=== PATIENT | female | born 1975 | race African-American/Black ===

== ENCOUNTER 2017-04-20 12:05 | Emergency (ER) | payer MEDICAID ==
[~2017-04-20] VITALS: Ht 154.9 cm; Wt 77.1 kg
[2017-04-20] MEDS ORDERED: Famotidine 20 MG/ 2ML VIAL IVP ONE (12:15)
[2017-04-20 12:35] LABS: BASOPHILS % (AUTO) 1.1 % (0.0-2.0); EOSINOPHILS % (AUTO) 0.3 % (0.0-3.0); LYMPHOCYTES % (AUTO) 27.6 % (20.0-45.0); MEAN CORPUSCULAR HEMOGLOBIN 30.2 PG (27.0-31.0); MEAN CORPUSCULAR HGB CONC 31.2 G/DL (32.0-36.0); MEAN CORPUSCULAR VOLUME 97 FL (80-99); MEAN PLATELET VOLUME 4.7 FL (6.5-10.1); MONOCYTES % (AUTO) 4.1 % (1.0-10.0); NEUTROPHILS % (AUTO) 66.8 % (45.0-75.0); PLATELET COUNT 396 K/UL (150-450); RED BLOOD COUNT 4.21 M/UL (4.20-5.40); WHITE BLOOD COUNT 7.5 K/UL (4.8-10.8)
[2017-04-20 12:36] VITALS: BP 142/76
[2017-04-20] MEDS ORDERED: Metoclopramide 10mg/2ml Inj ONE (13:02)
[2017-04-20 13:11] LABS: ALANINE AMINOTRANSFERASE 14 U/L (3-33); ALBUMIN/GLOBULIN RATIO 1.6 (1.0-2.7); ANION GAP 13 (5-15); ASPARTATE AMINO TRANSFERASE 21 U/L (5-40); CALCIUM 8.6 mg/dL (8.6-10.2); CARBON DIOXIDE 22 mEQ/L (20-30); CHLORIDE 106 mEQ/L (98-107); CREATININE 0.8 mg/dL (0.5-0.9); GLOMERULAR FILTRATION RATE > 60 mL/min (>60); HEMOLYSIS 6; LIPASE 16 U/L (< 60); POTASSIUM 3.7 mEQ/L (3.4-4.9); SODIUM 141 mEQ/L (135-145); TOTAL PROTEIN 7.1 g/dL (6.6-8.7)
[2017-04-20] MEDS ORDERED: Metoclopramide 10mg/2ml Inj IVP ONE (13:30)
[2017-04-20 13:44] LABS: APPEARANCE,URINE SLIGHTLY CLOUDY; KETONES,URINE NEGATIVE (NEGATIVE); LEUKOCYTE ESTERASE ,URINE NEGATIVE (NEGATIVE); NITRITE,URINE NEGATIVE (NEGATIVE); PH,URINE 7 (4.5-8.0); PROTEIN,URINE NEGATIVE (NEGATIVE); UROBILINOGEN,URINE NORMAL MG/DL (0.0-1.0)
[2017-04-20 13:51] LABS: BACTERIA,URINE FEW /HPF; RBC,URINE 0-2 /HPF (0 - 2); SQUAMOUS EPITHELIAL CELL,UR FEW /LPF (NONE/OCC); WBC,URINE 0-2 /HPF (0 - 2)
[2017-04-20] MEDS ORDERED: ZOFRAN ODT4 MG ORAL (13:54)
--- NOTE | 2017-04-20 13:54 | Emergency Room Report ---
History of Present Illness General Chief Complaint: Nausea Source: Patient, EMS Present Illness HPI 41-year-old female in no significant past medical history chronic marijuana user presenting with 2 days of nausea and vomiting. Patient states about 7 episodes of nonbilious nonbloody vomiting for the last 2 days associated with mild epigastric pain. Epigastric pain is burning in nature. Epigastric pain comes after the vomiting. No fever no chills no black or bloody stools no dysuria no hematuria Allergies: Coded Allergies: No Known Allergies (Unverified , 04/20/17) Patient History Past Medical History: none Past Surgical History: none Pertinent Family History: none Social History: Reports: drug use, smoking Now: No Nursing Documentation-[facility] Past Medical History: No History, Except For Hx Gastrointestinal Problems: Yes - History of Gastritis Review of Systems Gastrointestinal: Reports: abdominal pain, nausea, vomiting All Other Systems: negative except mentioned in HPI Physical Exam Vital Signs Date Time Temp Pulse Resp B/P Pulse Ox O2 Delivery O2 Flow Rate FiO2 04/20/17 12:04 98.1 132 24 142/76 97 Room Air Sp02 EP Interpretation: reviewed, normal General Appearance: normal inspection, well appearing, no apparent distress, alert, GCS 15, non-toxic Head: normocephalic, atraumatic Eyes: bilateral eye EOMI, bilateral eye PERRL, bilateral eye normal inspection ENT: normal ENT inspection, normal pharynx, normal voice, moist mucus membranes Neck: normal inspection, full range of motion, supple, no bony tend Respiratory: normal inspection, lungs clear, normal breath sounds, no respiratory distress, no retraction, no wheezing, speaking full sentences, chest symmetrical Cardiovascular #1: normal inspection, regular rate, rhythm, no edema, normal capillary refill Gastrointestinal: normal inspection, non tender, soft, non-distended, no guarding, other - No tenderness to deep palpation all quadrants. Pantoja's negative Musculoskeletal: normal inspection, back normal, normal range of motion, non- tender Neurologic: normal inspection, alert, oriented x3, responsive, motor strength/ tone normal, sensory intact, normal gait, speech normal Psychiatric: normal inspection, judgement/insight normal, memory normal Skin: normal inspection, normal color, no rash, warm/dry, well hydrated, normal turgor Medical Decision Making Diagnostic Impression: Primary Impression: Nausea and vomiting in adult patient ER Course 41 yo F p/w n/v x 2 days DDX: gastritis / gastroenteritis / GERD / marijuana related / / UTI at this time abdomen is soft/NT all quadrants, less likely dx are appendicitis, diverticulitis, gastritis, SBO, UTI imaging not indicated at this time Plan: IV access, obtain labs, UA/UCX, fluids, zofran ER Course: Patient has been stable in the ED. Pt states improvement with medications zofran /reglan Labs unremarkable, *UCG negative Repeat abdominal exam benign: no tenderness on exam Disposition: Patient will be discharged from the ED. Patient remains nontoxic appearing and her overall condition has improved while in the ED. Strict precautions were discussed with patient to emergently return to the ED such as: if there is a return or worsening of abdominal pain, inability to tolerate PO, persistent n/v, and fever/chills, which could indicate severe illness. Patient verbalized understanding. She is instructed to follow up with her PMD within 1 week. Patient agrees with plan. Last Vital Signs Date Time Temp Pulse Resp B/P Pulse Ox O2 Delivery O2 Flow Rate FiO2 04/20/17 12:36 98.1 87 24 142/76 97 Room Air Disposition: HOME, SELF-CARE Condition: Improved Scripts Ondansetron Odt* (ZOFRAN ODT*) 4 Mg Tab.rapdis 4 MG ORAL Q6H Y for Nausea & Vomiting for 2 Days, #8 TAB 0 Refills Prov: Harvey Meek M.D. 04/20/17 Referrals: [facility],REF (PCP) Patient Instructions: Nausea and Vomiting, Adult Additional Instructions: Please follow up with your primary care doctor within 3 days. Please return to the emergency room immediately if you are experiencing severe or worsening pain, high fevers or chills, chest pain, shortness of breath, severe abdominal pain, severe/persistent nausea or vomiting, headache. Harvey Meek M.D. Apr 20, 2017 13:54
[2017-04-20 14:13] VITALS: BP 125/73
[2017-04-20 14:31] VITALS: BP 125/73
== END 2017-04-20 14:35 | disposition home or self-care (01) ==
LOC: EDBD 12:05 → EMR 13:08
DX: R11.2 Nausea with vomiting, unspecified (principal); R10.13 Epigastric pain; Z87.19 Personal history of other diseases of the digestive system; F17.200 Nicotine dependence, unspecified, uncomplicated
CPT/HCPCS: 36415; 80053; 81003; 81025; 83690; 85025; 96361; 96374; 96375; 96376; 99284; J2405; J2765; S0028

== ENCOUNTER 2017-08-28 14:55 | Inpatient (IN) | payer MEDICAID ==
[~2017-08-28] VITALS: Ht 157.5 cm; Wt 68.0 kg
[~2017-08-28 14:55] MED LIST: ZOFRAN ODT4 MG ORAL
[2017-08-28] MEDS ORDERED: ZOFRAN ODT4 MG ORAL (15:29)
[2017-08-28] MEDS ORDERED: PEPCID40 MG PO (15:29)
--- NOTE | 2017-08-28 15:29 | Emergency Room Report ---
History of Present Illness General Chief Complaint: Abdominal Pain Source: EMS Present Illness HPI 42-year-old female with gastritis, on Prilosec, chronic marijuana user, p/w abdominal pain one day. Patient states pain started gradually, localized to epigastric region, non radiating, burning in nature, intermittent. No relieving or exacerbating factors. Severity is 5/10. Pt reports n/v, more than 10 episodes of nbnb vomiting, 2 episodes of watery non bloody diarrhea Denies fever, chills. No hx of abdominal surgeries. States that she had an endoscopy performed within the last 6 months at [place] and she was told she has gastritis Denies being No dysuria hematuria abnormal vaginal discharge Allergies: Coded Allergies: No Known Allergies (Unverified , 04/20/17) Patient History Past Medical History: see triage record Past Surgical History: none Pertinent Family History: none Reviewed Nursing Documentation: PMH: Agreed, PSxH: Agreed Nursing Documentation-PMH Past Medical History: No History, Except For Hx Hypertension: Yes Hx Gastrointestinal Problems: Yes - GASTRITIS Review of Systems All Other Systems: negative except mentioned in HPI Physical Exam Vital Signs Date Time Temp Pulse Resp B/P (MAP) Pulse Ox O2 Delivery O2 Flow Rate FiO2 08/28/17 14:48 97.5 60 18 167/96 98 Room Air Sp02 EP Interpretation: reviewed, normal General Appearance: alert, GCS 15, non-toxic, moderate distress Head: normocephalic, atraumatic Eyes: bilateral eye normal inspection, bilateral eye PERRL, bilateral eye EOMI ENT: normal ENT inspection, normal pharynx, normal voice, moist mucus membranes Neck: normal inspection, full range of motion, supple Respiratory: normal inspection, lungs clear, normal breath sounds, no respiratory distress, no retraction, no wheezing, speaking full sentences, chest symmetrical Cardiovascular #1: normal inspection, regular rate, rhythm, normal capillary refill Cardiovascular #2: 2+ radial (R), 2+ radial (L) Gastrointestinal: other - +epigastric tenderness no guarding or rigidity Musculoskeletal: normal inspection, back normal, normal range of motion, non- tender Neurologic: normal inspection, alert, oriented x3, responsive, motor strength/ tone normal, sensory intact, normal gait, speech normal Psychiatric: normal inspection, judgement/insight normal, memory normal Skin: normal inspection, normal color, no rash, warm/dry, well hydrated, normal turgor Medical Decision Making Diagnostic Impression: Primary Impression: Epigastric abdominal pain Additional Impressions: Nausea & vomiting Marijuana abuse ER Course 42-year-old female with epigastric abdominal pain Differential Diagnosis: Gastritis, gastroenteritis, cholecystitis, appendicitis, diverticulitis, UTI/ pyelo At this time abdomen is soft nontender aside from the epigastric region, not likely to have acute intra-abdominal surgical pathology, will hold CT for now. Plan: Basic labs, ua, ekg Pepcid, maalox, pain control, IVF ER course: Patient has remained stable during ED stay. continues to have intractable n/v positive for marijuana and PCP cannot tolerate PO will admit Disposition: Patient is to be Admitted to [facility]. Endorsed to Dr. Jang who is covering for Dr. fitzpatrick Please note that this Emergency Department Report was dictated using Pangaloreink technician technology software, occasionally this can lead to erroneous entry secondary to interpretation by the dictation equipment Laboratory Tests Test 08/28/17 15:40 08/28/17 17:10 08/28/17 17:20 White Blood Count 8.9 K/UL (4.8-10.8) Red Blood Count 4.50 M/UL (4.20-5.40) Hemoglobin 13.4 G/DL (12.0-16.0) Hematocrit 42.8 % (37.0-47.0) Mean Corpuscular Volume 95 FL (80-99) Mean Corpuscular Hemoglobin 29.7 PG (27.0-31.0) Mean Corpuscular Hemoglobin Concent 31.2 G/DL (32.0-36.0) L Red Cell Distribution Width 13.8 % (11.6-14.8) Platelet Count 385 K/UL (150-450) Mean Platelet Volume 5.2 FL (6.5-10.1) L Neutrophils (%) (Auto) 84.5 % (45.0-75.0) H Lymphocytes (%) (Auto) 12.2 % (20.0-45.0) L Monocytes (%) (Auto) 2.5 % (1.0-10.0) Eosinophils (%) (Auto) 0.1 % (0.0-3.0) Basophils (%) (Auto) 0.8 % (0.0-2.0) Sodium Level 136 MMOL/L (136-145) Potassium Level 3.6 MMOL/L (3.5-5.1) Chloride Level 102 MMOL/L (98-107) Carbon Dioxide Level 24 MMOL/L (21-32) Anion Gap 10 mmol/L (5-15) Blood Urea Nitrogen 8 mg/dL (7-18) Creatinine 0.9 MG/DL (0.55-1.30) Estimate Glomerular Filtration Rate > 60 mL/min (>60) Glucose Level 138 MG/DL (74-106) H Calcium Level 8.4 MG/DL (8.5-10.1) L Total Bilirubin 0.3 MG/DL (0.2-1.0) Aspartate Amino Transferase (AST) 20 U/L (15-37) Alanine Aminotransferase (ALT) 24 U/L (12-78) Alkaline Phosphatase 92 U/L (46-116) Total Protein 8.0 G/DL (6.4-8.2) Albumin 3.8 G/DL (3.4-5.0) Globulin 4.2 g/dL Albumin/Globulin Ratio 0.9 (1.0-2.7) L Lipase 61 U/L (73-393) L Urine Opiates Screen Negative (NEGATIVE) Urine Barbiturates Screen Negative (NEGATIVE) Phencyclidine (PCP) Screen Positive (NEGATIVE) H Urine Amphetamines Screen Negative (NEGATIVE) Urine Benzodiazepines Screen Negative (NEGATIVE) Urine Cocaine Screen Negative (NEGATIVE) Urine Marijuana (THC) Screen Positive (NEGATIVE) H Urine Color Pale yellow Urine Appearance Clear Urine pH 8 (4.5-8.0) Urine Specific [place] 1.010 (1.005-1.035) Urine Protein Negative (NEGATIVE) Urine Glucose (UA) Negative (NEGATIVE) Urine Ketones 3+ (NEGATIVE) H Urine Occult Blood Negative (NEGATIVE) Urine Nitrite Negative (NEGATIVE) Urine Bilirubin Negative (NEGATIVE) Urine Urobilinogen Normal MG/DL (0.0-1.0) Urine Leukocyte Esterase 1+ (NEGATIVE) H Urine RBC 0-2 /HPF (0 - 2) Urine WBC 2-4 /HPF (0 - 2) Urine Squamous Epithelial Cells Few /LPF (NONE/OCC) Urine Bacteria Few /HPF (NONE) Urine HCG, Qualitative Negative Last Vital Signs Date Time Temp Pulse Resp B/P (MAP) Pulse Ox O2 Delivery O2 Flow Rate FiO2 08/28/17 14:48 97.5 60 18 167/96 98 Room Air Disposition: HOME, SELF-CARE Condition: Improved Scripts Famotidine (PEPCID) 40 Mg Tablet 40 MG PO DAILY, #14 TAB 0 Refills Prov: Harvey Meek M.D. 08/28/17 Ondansetron Odt* (ZOFRAN ODT*) 4 Mg Tab.rapdis 4 MG ORAL Q6H Y for Nausea & Vomiting, #15 TAB 0 Refills Prov: Harvey Meek M.D. 08/28/17 Patient Instructions: Abdominal Pain, Adult, Gastritis, Adult, [id number] Harvey Meek M.D. Aug 28, 2017 15:29
[2017-08-28] MEDS: Lidocaine 2% Visc 15ml soln ORAL ONE ×2 (15:30→16:11)
[2017-08-28] MEDS: Mylanta II UD 30ml ORAL ONE ×2 (15:30→16:10)
[2017-08-28] MEDS: Dicyclomine HCl 10mg/5ml oral soln ORAL ONE ×2 (15:30→16:10)
[2017-08-28 15:57] LABS: BASOPHILS % (AUTO) 0.8 % (0.0-2.0); EOSINOPHILS % (AUTO) 0.1 % (0.0-3.0); HEMATOCRIT 42.8 % (37.0-47.0); HEMOGLOBIN 13.4 G/DL (12.0-16.0); LYMPHOCYTES % (AUTO) 12.2 % (20.0-45.0); MEAN CORPUSCULAR VOLUME 95 FL (80-99); MONOCYTES % (AUTO) 2.5 % (1.0-10.0); NEUTROPHILS % (AUTO) 84.5 % (45.0-75.0); PLATELET COUNT 385 K/UL (150-450); RED CELL DISTRIBUTION WIDTH 13.8 % (11.6-14.8); WHITE BLOOD COUNT 8.9 K/UL (4.8-10.8)
[2017-08-28 16:03] LABS: ANION GAP 10 mmol/L (5-15); BLOOD UREA NITROGEN 8 mg/dL (7-18); CALCIUM 8.4 MG/DL (8.5-10.1); CARBON DIOXIDE 24 MMOL/L (21-32); CHLORIDE 102 MMOL/L (98-107); CREATININE 0.9 MG/DL (0.55-1.30); POTASSIUM 3.6 MMOL/L (3.5-5.1); SODIUM 136 MMOL/L (136-145)
[2017-08-28 16:07] LABS: ALANINE AMINOTRANSFERASE 24 U/L (12-78); ALBUMIN 3.8 G/DL (3.4-5.0); ALBUMIN/GLOBULIN RATIO 0.9 (1.0-2.7); ALKALINE PHOSPHATASE 92 U/L (46-116); ASPARTATE AMINO TRANSFERASE 20 U/L (15-37); BILIRUBIN,TOTAL 0.3 MG/DL (0.2-1.0)
[2017-08-28] MEDS ORDERED: Haloperidol 5mg/ml Inj IM ONE (16:15)
[2017-08-28 16:30] VITALS: BP 142/82
[2017-08-28 17:40] LABS: APPEARANCE,URINE CLEAR; BILIRUBIN, URINE NEGATIVE (NEGATIVE); COLOR,URINE PALE YELLOW; GLUCOSE, URINE (UA) NEGATIVE (NEGATIVE); KETONES,URINE 3+ (NEGATIVE); LEUKOCYTE ESTERASE ,URINE 1+ (NEGATIVE); NITRITE,URINE NEGATIVE (NEGATIVE); PH,URINE 8 (4.5-8.0); PROTEIN,URINE NEGATIVE (NEGATIVE); UROBILINOGEN,URINE NORMAL MG/DL (0.0-1.0)
[2017-08-28 18:30] VITALS: BP 142/83
[2017-08-28 20:30] VITALS: BP 132/75
[2017-08-28 21:20] VITALS: BP 142/81
[2017-08-28] MEDS ORDERED: HYDROmorphone 1mg/ml Carpuject IVP PRN (22:15)
[2017-08-29 00:36] VITALS: BP 140/78
[2017-08-29 04:00] VITALS: BP 164/99
[2017-08-29 04:58] LABS: HEMATOCRIT 41.9 % (37.0-47.0); HEMOGLOBIN 13.2 G/DL (12.0-16.0); MEAN CORPUSCULAR VOLUME 95 FL (80-99); PLATELET COUNT 362 K/UL (150-450); RED CELL DISTRIBUTION WIDTH 13.4 % (11.6-14.8); WHITE BLOOD COUNT 9.5 K/UL (4.8-10.8)
[2017-08-29 05:22] LABS: ALANINE AMINOTRANSFERASE 25 U/L (12-78); ALBUMIN 3.7 G/DL (3.4-5.0); ALBUMIN/GLOBULIN RATIO 0.8 (1.0-2.7); ALKALINE PHOSPHATASE 92 U/L (46-116); ANION GAP 13 mmol/L (5-15); ASPARTATE AMINO TRANSFERASE 21 U/L (15-37); BILIRUBIN,TOTAL 0.3 MG/DL (0.2-1.0); BLOOD UREA NITROGEN 7 mg/dL (7-18); CALCIUM 8.2 MG/DL (8.5-10.1); CARBON DIOXIDE 21 MMOL/L (21-32); CHLORIDE 101 MMOL/L (98-107); CREATININE 0.8 MG/DL (0.55-1.30); POTASSIUM 3.7 MMOL/L (3.5-5.1); SODIUM 135 MMOL/L (136-145)
[2017-08-29] MEDS: Morphine Sulfate 2mg/ml Inj IVP PRN (06:02)
[2017-08-29 08:51] VITALS: BP 153/89
[2017-08-29] MEDS: hydroCHLOROthiazide 12.5mg TAB ORAL SCH ×2 (09:00→09:08)
--- NOTE | 2017-08-29 11:28 | GI Initial Consult Note ---
History of Present Illness General Date patient seen: Aug 29, 2017 Time patient seen: 11:24 Reason for Hospitalization: Abdominal Pain Referring physician: THOMPSON JAIN Reason for Consultation: N/V Present Illness HPI 42-year-old female with gastritis, on Prilosec, chronic marijuana user, p/w abdominal pain one day. Patient states pain started gradually, localized to epigastric region, non radiating, burning in nature, intermittent. No relieving or exacerbating factors. Severity is 5/10. Pt reports n/v, more than 10 episodes of nbnb vomiting, 2 episodes of watery non bloody diarrhea Denies fever, chills. No hx of abdominal surgeries. States that she had an endoscopy performed within the last 6 months at [place] and she was told she has gastritis Denies being No dysuria hematuria abnormal vaginal discharge GI consulted for N/V. HPI as noted above. Pt seen on floor, awake A&Ox4 NAD with no active s/sx of V/D. Denied any hematemesis or coffee grounds. Stated she had a few episodes of diarrhea. Currently complaining of nausea without vomiting. Tobacco user. Denies ETOH. MJ user. Takes Prilosec at home for her gastritis. Lab evaluation No leukocytosis mild lipase elevation Utox positive >> PCP+ and MJ+ Home Meds Active Scripts Famotidine (PEPCID) 40 Mg Tablet, 40 MG PO DAILY, #14 TAB 0 Refills Prov:Retino,Lakeshiairose M.D. 08/28/17 Ondansetron Odt* (ZOFRAN ODT*) 4 Mg Tab.rapdis, 4 MG ORAL Q6H Y for Nausea & Vomiting, #15 TAB 0 Refills Prov:RetinoLakeshiairo M.D. 08/28/17 Med list reviewed/reconciled: Yes Allergies: Coded Allergies: No Known Allergies (Unverified , 04/20/17) Patient History PMH Narrative Past Medical History: see triage record Past Surgical History: none Pertinent Family History: none Reviewed Nursing Documentation: PMH: Agreed, PSxH: Agreed Nursing Documentation-PMH Past Medical History: No History, Except For Hx Hypertension: Yes Hx Gastrointestinal Problems: Yes - GASTRITIS Social History: Reports: smoking, drug use Review of Systems All Other Systems: negative except mentioned in HPI Physical Exam Vital Signs Date Time Temp Pulse Resp B/P (MAP) Pulse Ox O2 Delivery O2 Flow Rate FiO2 08/28/17 14:48 97.5 60 18 167/96 98 Room Air Sp02 EP Interpretation: reviewed, normal Labs Laboratory Tests Test 08/28/17 15:40 08/28/17 17:10 08/28/17 17:20 08/29/17 04:20 White Blood Count 8.9 K/UL (4.8-10.8) 9.5 K/UL (4.8-10.8) Red Blood Count 4.50 M/UL (4.20-5.40) 4.40 M/UL (4.20-5.40) Hemoglobin 13.4 G/DL (12.0-16.0) 13.2 G/DL (12.0-16.0) Hematocrit 42.8 % (37.0-47.0) 41.9 % (37.0-47.0) Mean Corpuscular Volume 95 FL (80-99) 95 FL (80-99) Mean Corpuscular Hemoglobin 29.7 PG (27.0-31.0) 30.1 PG (27.0-31.0) Mean Corpuscular Hemoglobin Concent 31.2 G/DL (32.0-36.0) L 31.6 G/DL (32.0-36.0) L Red Cell Distribution Width 13.8 % (11.6-14.8) 13.4 % (11.6-14.8) Platelet Count 385 K/UL (150-450) 362 K/UL (150-450) Mean Platelet Volume 5.2 FL (6.5-10.1) L 5.3 FL (6.5-10.1) L Neutrophils (%) (Auto) 84.5 % (45.0-75.0) H % (45.0-75.0) Lymphocytes (%) (Auto) 12.2 % (20.0-45.0) L % (20.0-45.0) Monocytes (%) (Auto) 2.5 % (1.0-10.0) % (1.0-10.0) Eosinophils (%) (Auto) 0.1 % (0.0-3.0) % (0.0-3.0) Basophils (%) (Auto) 0.8 % (0.0-2.0) % (0.0-2.0) Sodium Level 136 MMOL/L (136-145) 135 MMOL/L (136-145) L Potassium Level 3.6 MMOL/L (3.5-5.1) 3.7 MMOL/L (3.5-5.1) Chloride Level 102 MMOL/L (98-107) 101 MMOL/L (98-107) Carbon Dioxide Level 24 MMOL/L (21-32) 21 MMOL/L (21-32) Anion Gap 10 mmol/L (5-15) 13 mmol/L (5-15) Blood Urea Nitrogen 8 mg/dL (7-18) 7 mg/dL (7-18) Creatinine 0.9 MG/DL (0.55-1.30) 0.8 MG/DL (0.55-1.30) Estimat Glomerular Filtration Rate > 60 mL/min (>60) > 60 mL/min (>60) Glucose Level 138 MG/DL (74-106) H 116 MG/DL (74-106) H Calcium Level 8.4 MG/DL (8.5-10.1) L 8.2 MG/DL (8.5-10.1) L Total Bilirubin 0.3 MG/DL (0.2-1.0) 0.3 MG/DL (0.2-1.0) Aspartate Amino Transf (AST/SGOT) 20 U/L (15-37) 21 U/L (15-37) Alanine Aminotransferase (ALT/SGPT) 24 U/L (12-78) 25 U/L (12-78) Alkaline Phosphatase 92 U/L (46-116) 92 U/L (46-116) Total Protein 8.0 G/DL (6.4-8.2) 8.1 G/DL (6.4-8.2) Albumin 3.8 G/DL (3.4-5.0) 3.7 G/DL (3.4-5.0) Globulin 4.2 g/dL 4.4 g/dL Albumin/Globulin Ratio 0.9 (1.0-2.7) L 0.8 (1.0-2.7) L Lipase 61 U/L (73-393) L Urine Opiates Screen Negative (NEGATIVE) Urine Barbiturates Screen Negative (NEGATIVE) Phencyclidine (PCP) Screen Positive (NEGATIVE) H Urine Amphetamines Screen Negative (NEGATIVE) Urine Benzodiazepines Screen Negative (NEGATIVE) Urine Cocaine Screen Negative (NEGATIVE) Urine Marijuana (THC) Screen Positive (NEGATIVE) H Urine Color Pale yellow Urine Appearance Clear Urine pH 8 (4.5-8.0) Urine Specific [place] 1.010 (1.005-1.035) Urine Protein Negative (NEGATIVE) Urine Glucose (UA) Negative (NEGATIVE) Urine Ketones 3+ (NEGATIVE) H Urine Occult Blood Negative (NEGATIVE) Urine Nitrite Negative (NEGATIVE) Urine Bilirubin Negative (NEGATIVE) Urine Urobilinogen Normal MG/DL (0.0-1.0) Urine Leukocyte Esterase 1+ (NEGATIVE) H Urine RBC 0-2 /HPF (0 - 2) Urine WBC 2-4 /HPF (0 - 2) Urine Squamous Epithelial Cells Few /LPF (NONE/OCC) Urine Bacteria Few /HPF (NONE) Urine HCG, Qualitative Negative General Appearance: well appearing, no apparent distress, alert Head: normocephalic EENT: PERRL/EOMI, normal ENT inspection Neck: supple Respiratory: normal breath sounds, no respiratory distress Cardiovascular: normal rate Gastrointestinal: normal inspection, non tender, soft, normal bowel sounds, non -distended Rectal: deferred Genitourinary: no CVA tenderness Musculoskeletal: normal inspection, back normal Neurologic: normal inspection, alert, oriented x3, responsive Psychiatric: normal inspection, judgement/insight normal, memory normal Skin: normal inspection, normal color, no rash, warm/dry, palpation normal, well hydrated Lymphatic: normal inspection, no adenopathy Current Medications Current Medications Medications (Trade) Dose Ordered Sig/Meron Route PRN Reason Start Time Stop Time Status Last Admin Dose Admin Famotidine (Pepcid) 40 mg DAILY ORAL 08/29/17 09:00 09/28/17 08:59 Hydrochlorothiazide (Hydrodiuril) 12.5 mg DAILY ORAL 08/29/17 09:00 09/28/17 08:59 Hydromorphone HCl (Dilaudid) 1 mg EVERY 12 HOURS PRN IVP Severe Pain (Pain Scale 7-10) 08/28/17 22:15 09/04/17 22:14 Morphine Sulfate (Morphine Sulfate) 2 mg EVERY 8 HOURS PRN IVP Moderate Pain (Pain Scale 4-6) 08/28/17 22:15 09/04/17 22:14 08/29/17 06:02 Ondansetron HCl (Zofran) 4 mg Q6H PRN IVP Nausea & Vomiting 08/28/17 21:00 09/27/17 20:59 08/29/17 06:04 Sodium Chloride 1,000 ml @ 200 mls/hr Q5H IV 08/28/17 22:00 09/27/17 21:59 08/29/17 09:07 GI: Plan Problems: (1) Cyclical vomiting (2) Gastroenteritis (3) Epigastric abdominal pain (4) Nausea & vomiting (5) Marijuana abuse Plan utox >> MJ+, PCP+ symptomatic treatment at this time zofran prn, reglan for persistent vomiting CLD, adv as tolerated H2B BiD PO/IV hydration + electrolyte correction pain mgmt drug avoidance education given fu labs, lipase Discussed with Dr. Clarke. Thank you for this patient referral, we will follow. Marlen Olivia N.P. Aug 29, 2017 11:28
[2017-08-29 12:50] VITALS: BP 154/77
[2017-08-29 15:50] VITALS: BP 102/66
[2017-08-29 20:25] VITALS: BP 109/60
[2017-08-29] MEDS ORDERED: Tums 500mg ORAL PRN (22:15)
--- NOTE | 2017-08-29 22:23 | Consultation ---
Consult Note Consult Note JOb ID: [id number] Tyler Marina Aug 29, 2017 22:23
[2017-08-30 00:19] VITALS: BP 110/65
[2017-08-30 04:00] VITALS: BP 147/94
[2017-08-30 08:00] VITALS: BP 165/85
[2017-08-30] MEDS: hydroCHLOROthiazide 12.5mg TAB ORAL SCH (08:29)
[2017-08-30 08:46] LABS: BASOPHILS % (AUTO) 0.4 % (0.0-2.0); HEMATOCRIT 42.3 % (37.0-47.0); HEMOGLOBIN 13.5 G/DL (12.0-16.0); MEAN CORPUSCULAR VOLUME 95 FL (80-99); NEUTROPHILS % (AUTO) 83.7 % (45.0-75.0); PLATELET COUNT 411 K/UL (150-450); RED BLOOD COUNT 4.45 M/UL (4.20-5.40); RED CELL DISTRIBUTION WIDTH 13.5 % (11.6-14.8); WHITE BLOOD COUNT 9.9 K/UL (4.8-10.8)
[2017-08-30 09:09] LABS: ANION GAP 8 mmol/L (5-15); BLOOD UREA NITROGEN 7 mg/dL (7-18); CALCIUM 8.1 MG/DL (8.5-10.1); CARBON DIOXIDE 27 MMOL/L (21-32); CHLORIDE 101 MMOL/L (98-107); CREATININE 0.8 MG/DL (0.55-1.30); POTASSIUM 3.8 MMOL/L (3.5-5.1); SODIUM 136 MMOL/L (136-145)
--- NOTE | 2017-08-30 10:34 | GI Progress Note ---
Assessment/Plan Problems: (1) Nausea & vomiting ICD Codes: R11.2 - Nausea with vomiting, unspecified SNOMED: 81554804 (2) Cyclical vomiting ICD Codes: G43.A0 - Cyclical vomiting, not intractable SNOMED: 51316465 (3) Gastroenteritis ICD Codes: K52.9 - Noninfective gastroenteritis and colitis, unspecified SNOMED: 62675773 (4) Intractable nausea and vomiting ICD Codes: R11.2 - Nausea with vomiting, unspecified SNOMED: 321731665, 360718403 (5) Epigastric abdominal pain ICD Codes: R10.13 - Epigastric pain SNOMED: 34404712 (6) Marijuana abuse ICD Codes: F12.10 - Cannabis abuse, uncomplicated SNOMED: 69122972 Status: unchanged Status Narrative Discussed with Dr. Clarke. Assessment/Plan utox >> MJ+, PCP+ symptomatic treatment at this time zofran prn, reglan for persistent vomiting adv to regular diet H2B BID PO/IV hydration + electrolyte correction pain mgmt drug avoidance education given fu labs, lipase Subjective Gastrointestinal/Abdominal: Reports: nausea Objective Last 24 Hour Vital Signs Date Time Temp Pulse Resp B/P (MAP) Pulse Ox O2 Delivery O2 Flow Rate FiO2 08/30/17 08:00 98.7 61 19 165/85 96 08/30/17 04:01 Room Air 08/30/17 04:00 97.9 61 18 147/94 100 08/30/17 00:20 Room Air 08/30/17 00:19 98.1 82 18 110/65 97 08/29/17 20:26 Room Air 08/29/17 20:25 99.2 75 19 109/60 98 08/29/17 15:50 98.1 87 20 102/66 99 08/29/17 12:50 98.9 68 20 154/77 100 Intake and Output 08/29/17 08/30/17 19:00 07:00 Intake Total 2000 ml 1040 ml Output Total 100 ml Balance 2000 ml 940 ml Intake Oral 200 ml 240 ml IV Total 1800 ml 800 ml Output Emesis 100 ml # Voids 3 Laboratory Tests Test 08/30/17 07:10 White Blood Count 9.9 K/UL (4.8-10.8) Red Blood Count 4.45 M/UL (4.20-5.40) Hemoglobin 13.5 G/DL (12.0-16.0) Hematocrit 42.3 % (37.0-47.0) Mean Corpuscular Volume 95 FL (80-99) Mean Corpuscular Hemoglobin 30.3 PG (27.0-31.0) Mean Corpuscular Hemoglobin Concent 31.9 G/DL (32.0-36.0) L Red Cell Distribution Width 13.5 % (11.6-14.8) Platelet Count 411 K/UL (150-450) Mean Platelet Volume 5.1 FL (6.5-10.1) L Neutrophils (%) (Auto) 83.7 % (45.0-75.0) H Lymphocytes (%) (Auto) 13.0 % (20.0-45.0) L Monocytes (%) (Auto) 3.0 % (1.0-10.0) Eosinophils (%) (Auto) 0.0 % (0.0-3.0) Basophils (%) (Auto) 0.4 % (0.0-2.0) Sodium Level 136 MMOL/L (136-145) Potassium Level 3.8 MMOL/L (3.5-5.1) Chloride Level 101 MMOL/L (98-107) Carbon Dioxide Level 27 MMOL/L (21-32) Anion Gap 8 mmol/L (5-15) Blood Urea Nitrogen 7 mg/dL (7-18) Creatinine 0.8 MG/DL (0.55-1.30) Estimat Glomerular Filtration Rate > 60 mL/min (>60) Glucose Level 104 MG/DL (74-106) Calcium Level 8.1 MG/DL (8.5-10.1) L Height (Feet): 5 Height (Inches): 2.00 Weight (Pounds): 150 General Appearance: WD/WN, no apparent distress, alert, thin, obese Cardiovascular: normal rate Respiratory/Chest: normal breath sounds, no respiratory distress Abdominal Exam: normal bowel sounds, non tender, soft Extremities: normal range of motion, non-tender Marlen Olivia N.P. Aug 30, 2017 10:34
[2017-08-30 12:10] VITALS: BP 153/85
--- NOTE | 2017-08-30 13:15 | History and Physical Report ---
DATE OF ADMISSION: 08/28/2017 NOTE: POOR AUDIO IDENTIFICATION DATA: The patient is a pleasant 42-year-old female with past medical history significant for acid reflux and chronic marijuana use, at this time presents with abdominal pain, epigastric in nature. She has had similar symptoms in the past past several years ____ nonradiating epigastric pain, intermittent, over the past several days. She has had endoscopy performed, which showed gastritis consulted GI Service. The patient has nausea and vomiting. PAST MEDICAL HISTORY: As noted above. PAST SURGICAL HISTORY: None reported. MEDICATIONS: ALLERGIES: No known drug allergies. FAMILY HISTORY: Noncontributory. REVIEW OF SYSTEMS: A 12-point review of systems is otherwise negative besides as noted in the history of present illness. PHYSICAL EXAMINATION: GENERAL: No acute distress. VITAL SIGNS: Reviewed. PULMONARY: Decreased breath sounds. CARDIOVASCULAR: Regular rate. No S3 or S4. ABDOMEN: Soft, nontender, and nondistended. EXTREMITIES: A 1+ edema. LABORATORY DATA: ASSESSMENT AND RECOMMENDATIONS: 1. Intractable nausea and vomiting. Continue Zofran as needed. Continue fluids. Continue Pepcid. GI Service consulted as well. Potentially related to marijuana use. 2. 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 3. Marijuana use history in the past . 4. for vomiting. 5. Nephrology Service at this time consult Nephrology. I appreciate the business intelligence consultant care. Tyler Marina M.D. DR: HAYLEE JOB#: [id number] CC:
[2017-08-30 16:00] VITALS: BP 159/84
[2017-08-30] MEDS: Morphine Sulfate 2mg/ml Inj IVP PRN (18:35)
[2017-08-30 20:00] VITALS: BP 126/72
--- NOTE | 2017-08-30 22:25 | General Progress Note ---
Assessment/Plan Assessment/Plan ASSESSMENT AND RECOMMENDATIONS: 1. Intractable nausea and vomiting. Continue Zofran as needed. Continue fluids. Continue Pepcid. GI Service consulted as well. Potentially related to marijuana use. 2. 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 3. Marijuana use 4. Gastritis, the patient has had an egd within the last 6 months Subjective Allergies: Coded Allergies: No Known Allergies (Unverified , 04/20/17) All Systems: reviewed and negative except above Subjective feeling better however not eating Objective Last 24 Hour Vital Signs Date Time Temp Pulse Resp B/P (MAP) Pulse Ox O2 Delivery O2 Flow Rate FiO2 08/30/17 20:00 97.8 59 18 126/72 99 Room Air 08/30/17 16:00 97.7 53 18 159/84 98 08/30/17 12:10 98.6 65 19 153/85 97 Room Air 08/30/17 08:00 98.7 61 19 165/85 96 08/30/17 04:01 Room Air 08/30/17 04:00 97.9 61 18 147/94 100 08/30/17 00:20 Room Air 08/30/17 00:19 98.1 82 18 110/65 97 Intake and Output 08/29/17 08/30/17 19:00 07:00 Intake Total 2000 ml 1040 ml Output Total 100 ml Balance 2000 ml 940 ml Intake Oral 200 ml 240 ml IV Total 1800 ml 800 ml Output Emesis 100 ml # Voids 3 Laboratory Tests 08/30/17 07:10: White Blood Count 9.9, Red Blood Count 4.45, Hemoglobin 13.5, Hematocrit 42.3, Mean Corpuscular Volume 95, Mean Corpuscular Hemoglobin 30.3, Mean Corpuscular Hemoglobin Concent 31.9L, Red Cell Distribution Width 13.5, Platelet Count 411, Mean Platelet Volume 5.1L, Neutrophils (%) (Auto) 83.7H, Lymphocytes (%) (Auto) 13.0L, Monocytes (%) (Auto) 3.0, Eosinophils (%) (Auto) 0.0, Basophils (%) (Auto ) 0.4, Sodium Level 136, Potassium Level 3.8, Chloride Level 101, Carbon Dioxide Level 27, Anion Gap 8, Blood Urea Nitrogen 7, Creatinine 0.8, Estimat Glomerular Filtration Rate > 60, Glucose Level 104, Calcium Level 8.1L Height (Feet): 5 Height (Inches): 2.00 Weight (Pounds): 150 General Appearance: no apparent distress EENT: normal ENT inspection Neck: normal alignment Cardiovascular: normal peripheral pulses Abdomen: normal bowel sounds Extremities: non-tender Tyler Marina Aug 30, 2017 22:25
[2017-08-31] VITALS: BP 117/71
[2017-08-31 04:00] VITALS: BP 120/85
[2017-08-31 07:41] LABS: BASOPHILS % (AUTO) 0.8 % (0.0-2.0); EOSINOPHILS % (AUTO) 0.3 % (0.0-3.0); HEMATOCRIT 41.4 % (37.0-47.0); HEMOGLOBIN 13.6 G/DL (12.0-16.0); LYMPHOCYTES % (AUTO) 31.3 % (20.0-45.0); MEAN CORPUSCULAR VOLUME 95 FL (80-99); MONOCYTES % (AUTO) 6.6 % (1.0-10.0); PLATELET COUNT 405 K/UL (150-450); RED BLOOD COUNT 4.37 M/UL (4.20-5.40); RED CELL DISTRIBUTION WIDTH 13.1 % (11.6-14.8); WHITE BLOOD COUNT 8.8 K/UL (4.8-10.8)
[2017-08-31 07:51] LABS: ANION GAP 12 mmol/L (5-15); BLOOD UREA NITROGEN 9 mg/dL (7-18); CALCIUM 7.9 MG/DL (8.5-10.1); CARBON DIOXIDE 24 MMOL/L (21-32); CHLORIDE 101 MMOL/L (98-107); CREATININE 0.6 MG/DL (0.55-1.30); POTASSIUM 4.1 MMOL/L (3.5-5.1); SODIUM 137 MMOL/L (136-145)
[2017-08-31 08:00] VITALS: BP 105/63
[2017-08-31] MEDS: hydroCHLOROthiazide 12.5mg TAB ORAL SCH (08:56)
--- NOTE | 2017-08-31 19:46 | General Progress Note ---
Assessment/Plan Assessment/Plan ASSESSMENT AND RECOMMENDATIONS: 1. Intractable nausea and vomiting. --> Resolved 2. 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 3. Marijuana use 4. Gastritis, the patient has had an egd within the last 6 months Subjective Allergies: Coded Allergies: No Known Allergies (Unverified , 04/20/17) All Systems: reviewed and negative except above Subjective no n/v/d Objective Last 24 Hour Vital Signs Date Time Temp Pulse Resp B/P (MAP) Pulse Ox O2 Delivery O2 Flow Rate FiO2 08/31/17 08:00 98.0 62 20 105/63 98 Room Air 08/31/17 04:00 98.3 77 18 120/85 98 Room Air 08/31/17 00:00 98.4 58 18 117/71 99 Room Air 08/30/17 20:00 97.8 59 18 126/72 99 Room Air Intake and Output 08/30/17 08/31/17 19:00 07:00 Intake Total 2350 ml 2440 ml Balance 2350 ml 2440 ml Intake Oral 350 ml 240 ml IV Total 2000 ml 2200 ml # Voids 2 3 Laboratory Tests 08/31/17 05:15: White Blood Count 8.8, Red Blood Count 4.37, Hemoglobin 13.6, Hematocrit 41.4, Mean Corpuscular Volume 95, Mean Corpuscular Hemoglobin 31.1H, Mean Corpuscular Hemoglobin Concent 32.8, Red Cell Distribution Width 13.1, Platelet Count 405, Mean Platelet Volume 5.4L, Neutrophils (%) (Auto) 61.0, Lymphocytes (%) (Auto) 31.3, Monocytes (%) (Auto) 6.6, Eosinophils (%) (Auto) 0.3, Basophils (%) (Auto ) 0.8, Sodium Level 137, Potassium Level 4.1, Chloride Level 101, Carbon Dioxide Level 24, Anion Gap 12, Blood Urea Nitrogen 9, Creatinine 0.6, Estimat Glomerular Filtration Rate > 60, Glucose Level 80, Calcium Level 7.9L Height (Feet): 5 Height (Inches): 2.00 Weight (Pounds): 150 General Appearance: no apparent distress EENT: normal ENT inspection Neck: normal alignment Cardiovascular: normal peripheral pulses Extremities: normal range of motion Edema: mild edema Skin: normal pigmentation Tyler Marina Aug 31, 2017 19:46
--- NOTE | 2017-08-31 20:48 | General Progress Note ---
Assessment/Plan Assessment/Plan Assessment (1) Nausea & vomiting ICD Codes: R11.2 - Nausea with vomiting, unspecified SNOMED: 24432393 (2) Cyclical vomiting ICD Codes: G43.A0 - Cyclical vomiting, not intractable SNOMED: 46310958 (3) Gastroenteritis ICD Codes: K52.9 - Noninfective gastroenteritis and colitis, unspecified SNOMED: 86587226 (4) Intractable nausea and vomiting ICD Codes: R11.2 - Nausea with vomiting, unspecified SNOMED: 088381274, 331026916 (5) Epigastric abdominal pain ICD Codes: R10.13 - Epigastric pain SNOMED: 44877086 (6) Marijuana abuse ICD Codes: F12.10 - Cannabis abuse, uncomplicated SNOMED: 46386673 Status: unchanged Assessment/Plan utox >> MJ+, PCP+ symptomatic treatment at this time zofran prn, reglan for persistent vomiting adv to regular diet H2B BID PO/IV hydration + electrolyte correction pain mgmt drug avoidance education given fu labs, lipase Subjective Allergies: Coded Allergies: No Known Allergies (Unverified , 04/20/17) Subjective Seen this am feels ok (R) sided abd pain resolved loose BM Objective Last 24 Hour Vital Signs Date Time Temp Pulse Resp B/P (MAP) Pulse Ox O2 Delivery O2 Flow Rate FiO2 08/31/17 08:00 98.0 62 20 105/63 98 Room Air 08/31/17 04:00 98.3 77 18 120/85 98 Room Air 08/31/17 00:00 98.4 58 18 117/71 99 Room Air Intake and Output 08/30/17 08/31/17 19:00 07:00 Intake Total 2350 ml 2440 ml Balance 2350 ml 2440 ml Intake Oral 350 ml 240 ml IV Total 2000 ml 2200 ml # Voids 2 3 Laboratory Tests 08/31/17 05:15: White Blood Count 8.8, Red Blood Count 4.37, Hemoglobin 13.6, Hematocrit 41.4, Mean Corpuscular Volume 95, Mean Corpuscular Hemoglobin 31.1H, Mean Corpuscular Hemoglobin Concent 32.8, Red Cell Distribution Width 13.1, Platelet Count 405, Mean Platelet Volume 5.4L, Neutrophils (%) (Auto) 61.0, Lymphocytes (%) (Auto) 31.3, Monocytes (%) (Auto) 6.6, Eosinophils (%) (Auto) 0.3, Basophils (%) (Auto ) 0.8, Sodium Level 137, Potassium Level 4.1, Chloride Level 101, Carbon Dioxide Level 24, Anion Gap 12, Blood Urea Nitrogen 9, Creatinine 0.6, Estimat Glomerular Filtration Rate > 60, Glucose Level 80, Calcium Level 7.9L Height (Feet): 5 Height (Inches): 2.00 Weight (Pounds): 150 Objective WDWN NCAT supple CTA RR Soft NT ND no edema THERESA WALDEN Aug 31, 2017 20:47
--- NOTE | 2017-09-04 11:44 | Discharge Summary ---
Discharge Summary Hospital Course Date of Admission Aug 28, 2017 at 18:15 Date of Discharge Aug 31, 2017 at 15:00 Admitting Diagnosis intractable n/v HPI Sugar R Benjamin is a 42 year old female who was admitted on Aug 28, 2017 at 18:15 for Intractable Nausea/Vomiting Hospital Course dc summary #[id number] Discharge Medications Continued Medications: Famotidine (Pepcid) 40 Mg Tablet 40 MG PO DAILY, #14 TAB 0 Refills Ondansetron Odt* (Zofran Odt*) 4 Mg Tab.rapdis 4 MG ORAL Q6H PRN for Nausea & Vomiting, #15 TAB 0 Refills Discharge Condition Upon Discharge: stable Discharge Disposition Patient was discharged to Home (01) Discharge Diagnoses: Discharge Instructions Discharge Instructions Special Instructions I have been assigned to complete a D/C Summary on this account. I was not involved in the patient management Cora Pedersen NP ([place]) Sep 04, 2017 11:44
--- NOTE | 2017-09-04 15:45 | Discharge Summary 2 SIG ---
DATE OF ADMISSION: 08/28/2017 DATE OF DISCHARGE: 08/31/2017 REASON FOR ADMISSION: 42 years old female with history of gastritis and chronic marijuana user presented to emergency department complaining of abdominal pain for one day. The patient reported gradual onset of pain localized in epigastric region, nonradiating, burning, and intermittent,with severity 5/10 on a scale 1 to 10. The patient reported nausea and vomiting more than 10 episodes of nonbloody and nonbilious vomiting, two episodes of watery nonbloody diarrhea. No fever. No chills. No history of abdominal surgery. Endoscopy was done six months ago at [place] and she was told she had gastritis. She denied dysuria, hematuria, or abnormal vaginal bleeding. Vital signs were stable. Urine test was negative. Urine toxicology screen was positive for marijuana and PCP. Urinalysis was negative for evidence of UTI. Stable chemistry. No leukocytosis. The patient was continued to have intractable nausea, vomiting, and unable to tolerate p.o. The patient was provided with pain management, antiemetic, and admitted for further management. Abdominal exam was benign aside from epigastric region with mild tenderness, but not likely acute intraabdominal surgical pathology. CT of abdomen and pelvis was held. The patient admitted with diagnosis of epigastric abdominal pain, nausea, vomiting, and marijuana abuse. HOSPITAL COURSE: The patient admitted on medical/surgical floor. GI consult was requested. GI diagnosed the patient with cyclic vomiting syndrome secondary to marijuana abuse, recommended to treat symptomatically. Antiemetic started with Zofran as needed and Reglan for persistent vomiting. Diet slowly advanced as tolerated. The patient able to tolerate diet. The patient started on H2 brenda twice a day. The patient was on the IV fluids. Recommended liberal oral hydration and push fluids upon discharge. Electrolytes were closely monitored. No need for replacement. Pain management provided. The patient was counseled on avoidance of drugs. The patient was stable for discharge. FINAL DIAGNOSES: 1. Cyclic vomiting syndrome secondary to marijuana abuse. 2. Marijuana abuse. 3. Intractable nausea and vomiting due to the cyclic vomiting syndrome. 4. Gastroenteritis. 5. Epigastric abdominal pain. DISCHARGE MEDICATIONS: See medication reconciliation list. Prescription provided. DISCHARGE INSTRUCTIONS: The patient was discharged home. Followup with primary medical doctor next week. Reinforced avoidance of street drugs. Tyler Marina M.D. I have been assigned to dictate discharge summary on this account and I was not involved in the patient's management. Cora CarringtonDaya govea DR: Esther JOB#: [id number] CC: YOHANNES
== END 2017-08-31 15:00 | disposition home or self-care (01) | DRG 249 ==
LOC: EDBD 14:55 → EMR 17:17 → 3E 18:15 → EDBEDREQ 19:17 → 3E 08-29 00:42
DX: K52.9 Noninfective gastroenteritis and colitis, unspecified (principal); F12.10 Cannabis abuse, uncomplicated; G43.A0 Cyclical vomiting, in migraine, not intractable
CPT/HCPCS: 36415; 80048; 80053; 80307; 81003; 81025; 83690; 85025; 99285; J2405

== ENCOUNTER 2017-09-02 13:07 | Emergency (ER) | payer MEDICAID ==
[~2017-09-02] VITALS: Ht 162.6 cm; Wt 65.8 kg
[~2017-09-02 13:07] MED LIST changes: +PEPCID40 MG PO
[2017-09-02 13:15] VITALS: BP 150/96
[2017-09-02] MEDS ORDERED: Haloperidol 5mg/ml Inj IM ONE (14:45)
[2017-09-02] MEDS ORDERED: PEPCID40 MG PO (15:19)
[2017-09-02] MEDS ORDERED: ZOFRAN ODT4 MG ORAL (15:19)
--- NOTE | 2017-09-02 15:25 | Emergency Room Report ---
History of Present Illness General Chief Complaint: Abdominal Pain Source: Patient Present Illness HPI 42-year-old female brought in by ambulance for continued intractable pain and nausea and vomiting Patient was discharged with yesterday, states she wasn't given any discharging information or prescriptions My review of the MR shows history of gastritis, history of drug abuse, marijuana and PCP Patient denies fever chills, denies diarrhea Patient was evaluated by fnps during admission, advise Zofran and Pepcid when necessary Symptoms thought due to 2 drug abuse no Prior abdominal or pelvic surgeries Allergies: Coded Allergies: SULFAMETHOXAZOLE (Unverified Allergy, Unknown, 09/02/17) TRIMETHOPRIM (Unverified Allergy, Unknown, 09/02/17) Patient History Past Medical History: none Past Surgical History: none Pertinent Family History: none Social History: Reports: drug use Now: No Immunizations: UTD Reviewed Nursing Documentation: PMH: Agreed, PSxH: Agreed Nursing Documentation-PMH Hx Cardiac Problems: No Hx Hypertension: Yes Hx Cancer: No Hx Gastrointestinal Problems: Yes Hx Neurological Problems: No Review of Systems All Other Systems: negative except mentioned in HPI Physical Exam Vital Signs Date Time Temp Pulse Resp B/P (MAP) Pulse Ox O2 Delivery O2 Flow Rate FiO2 09/02/17 13:05 98.1 69 20 150/96 98 Room Air Sp02 EP Interpretation: reviewed, normal General Appearance: normal inspection, well appearing, no apparent distress, alert, GCS 15, non-toxic Head: normocephalic, atraumatic Eyes: bilateral eye PERRL, bilateral eye EOMI ENT: normal ENT inspection, hearing grossly normal, normal pharynx, no angioedema, normal voice, TMs + canals normal, uvula midline, moist mucus membranes Neck: normal inspection, full range of motion, supple, thyroid normal, no meningismus, no bony tend Respiratory: normal inspection, lungs clear, normal breath sounds, no rhonchi, no respiratory distress, no retraction, no accessory muscle use, no wheezing, speaking full sentences Cardiovascular #1: regular rate, rhythm, no edema, no JVD, normal capillary refill Gastrointestinal: normal inspection, normal bowel sounds, non tender, soft, no mass, no peritonitis, non-distended, no guarding, no hernia, no pulsatile mass Genitourinary: no CVA tenderness Musculoskeletal: normal inspection, back normal, normal range of motion, no calf tenderness, pelvis stable, Judi's Sign negative Neurologic: normal inspection, alert, oriented x3, responsive, sill worker III-XII nml as tested, motor strength/tone normal, cerebellar normal, normal gait, speech normal Psychiatric: normal inspection, judgement/insight normal, mood/affect normal, no suicidal/homicidal ideation, no delusions Skin: normal inspection, normal color, no rash Lymphatic: normal inspection, no adenopathy Medical Decision Making Diagnostic Impression: Primary Impression: Intractable nausea and vomiting Qualified Codes: G43.A1 - Cyclical vomiting, intractable ER Course 42year-old female intractable abdominal pain and vomiting vital Signs stable, afebrile Abdomen is nonfocal on serial exam Patient was given low dose of Haldol with improvement in symptoms patient already had extensive workup in the ER, hospital and seen by fnps She was provided with prescriptions this time, being Pepcid and Zofran close primary care followup yo with DDX: Plan: Obtain labs, ua, ucx, ucg, CXR, EKG ER course: Patient has remained stable during ED stay. Disposition: Patient is to be discharged to home. Prescriptions given are zofran, pepcid Patient is instructed to follow up with their primary care doctor within 5 days. Strict return precautions discussed with patient such as fever, chills, worsening/severe pain, nausea, vomiting, which may indicate severe illness. Patient verbalizes understanding and agrees with plan. Please note that this Emergency Department Report was dictated using [employer] planner technology software, occasionally this can lead to erroneous entry secondary to interpretation by the dictation equipment Last Vital Signs Date Time Temp Pulse Resp B/P (MAP) Pulse Ox O2 Delivery O2 Flow Rate FiO2 09/02/17 13:15 98.1 20 150/96 98 Room Air 09/02/17 13:05 69 Status: improved Disposition: HOME, SELF-CARE Condition: Improved Scripts Famotidine (PEPCID) 40 Mg Tablet 40 MG PO DAILY for 7 Days, #30 TAB 0 Refills Prov: PRECIOUS MCCORMACK M.D. 09/02/17 Ondansetron Odt* (ZOFRAN ODT*) 4 Mg Tab.rapdis 4 MG ORAL Q6H Y for Nausea & Vomiting for 7 Days, #30 TAB 0 Refills Prov: PRECIOUS MCCORMACK M.D. 09/02/17 Referrals: [facility] (PCP) Patient Instructions: Gastritis, Adult, [id number] Additional Instructions: - Take zofran as needed for nausea/vomiting - Continue taking pepcid daily for gastritis PRECIOUS MCCORMACK M.D. Sep 02, 2017 15:25
[2017-09-02 15:30] VITALS: BP 150/96
== END 2017-09-02 15:31 | disposition home or self-care (01) ==
LOC: EDBD 13:07 → EMR 14:43
DX: R11.2 Nausea with vomiting, unspecified (principal); I10 Essential (primary) hypertension; Z88.2 Allergy status to sulfonamides
CPT/HCPCS: 96372; 99284; J1630